=== PATIENT | male | born 1985 | race Caucasian/White ===

== ENCOUNTER 2022-01-12 09:42 | Emergency (ER) | payer SELFPAY ==
[~2022-01-12] VITALS: Ht 172.7 cm; Wt 77.1 kg
[2022-01-12] MEDS ORDERED: OLAN10TA3 PO (10:05)
--- NOTE | 2022-01-12 10:10 | NUR ---
Dr Garcia at the bedside for MSE.
--- NOTE | 2022-01-12 10:20 | NUR ---
Pt refused blood work and HL, in spite of Dr hardwick speaking w/ him.
[2022-01-12] MEDS ORDERED: OLANZAPINE 10 MG VIAL IM ONE (10:21)
[2022-01-12] MEDS: OLANZAPINE 5 MG TABLET PO ONE (10:21)
[2022-01-12] MEDS ORDERED: OLANZAPINE 5 MG TABLET ONE (10:25)
[2022-01-12] MEDS: OLANZAPINE 10 MG VIAL IM ONE (10:34)
--- NOTE | 2022-01-12 10:57 | NUR ---
PT agreed to have blood drawn, surgical technologist at the bedside.
[2022-01-12 11:03] LABS: HEMATOCRIT 38.3 % (36.7-47.1); MEAN CORPUSCULAR HEMOGLOBIN 29.9 uug (23.8-33.4); MEAN CORPUSCULAR VOLUME 89.9 fL (73.0-96.2); PLATELET COUNT (AUTO) 345 K/uL (152-348)
[2022-01-12 11:16] LABS: NEUTROPHILS % (MANUAL) 0 % (42-75)
[2022-01-12 11:22] LABS: CARBON DIOXIDE 28 mmol/L (21-32); CHLORIDE 104 mmol/L (98-107); CREATININE 0.7 mg/dL (0.6-1.3); ETHANOL < 3 MG/DL (0-0); GLUCOSE 111 mg/dL (74-106); POTASSIUM 4.2 mmol/L (3.5-5.1); UREA NITROGEN, BLOOD 9 mg/dL (7-18)
--- NOTE | 2022-01-12 11:24 | NUR ---
Patient is resting comfortably in bed with eyes closed, NAD noted.
[2022-01-12 11:26] LABS: ALANINE AMINOTRANSFERASE 83 U/L (16-63); ALKALINE PHOSPHATASE 90 U/L (50-136); ASPARTATE AMINOTRANSFERASE 55 U/L (15-37); BILIRUBIN,DIRECT 0.1 mg/dL (0.0-0.2); BILIRUBIN,TOTAL 0.3 mg/dL (0.2-1.0); TOTAL PROTEIN, SERUM 7.2 g/dL (6.4-8.2)
[2022-01-12 11:29] LABS: ACETAMINOPHEN < 2.0 ug/mL (10-30); THYROID STIMULATING HORMONE 2.293 mIU/mL (0.358-3.740)
[2022-01-12 12:20] LABS: *BILIRUBIN,URIN NEGATIVE (NEGATIVE); *BLOOD, URINE NEGATIVE (NEGATIVE); *CLARITY,URINE CLEAR (CLEAR); *COLOR,URINE YELLOW (YELLOW); *KETONES,URINE NEGATIVE (NEGATIVE); *UROBILINOGEN,URINE 0.2 E.U./dl (NORMAL); LEUKOCYTE ESTERASE ,URINE NEGATIVE (NEGATIVE); NITRITE, URINE NEGATIVE (NEGATIVE); PH,URINE 7.5 (5.0-8.0); UGLUCOSE NEGATIVE (NEGATIVE)
[2022-01-12 12:39] LABS: *AMPHETAMINE, URINE POSITIVE (NEGATIVE); *CANNABINOID, URINE NEGATIVE (NEGATIVE); *COCCAINE, URINE NEGATIVE (NEGATIVE); *OPIATE, URINE NEGATIVE (NEGATIVE); *PHENCYCLIDINE SCREEN,URINE NEGATIVE (NEGATIVE)
--- NOTE | 2022-01-12 12:53 | NUR ---
Lunch tray provided, pt didn't eat at this time, stating not hungry now.
--- NOTE | 2022-01-12 13:17 | NUR ---
Patient eloped from facility. ER physician notified.
== END 2022-01-12 13:19 | disposition left against medical advice (07) ==
LOC: ER 09:42
DX: F15.951 Other stimulant use, unspecified with stimulant-induced psychotic disorder with hallucinations (principal); Z59.00 Homelessness unspecified; Z20.822 Contact with and (suspected) exposure to COVID-19
CPT/HCPCS: 36415; 70030-TC; 84443; 85025; A4663; G0480; J2358